=== PATIENT | female | born 1970 | race Hispanic/Latino ===

== ENCOUNTER 2019-06-21 19:16 | Emergency (ER) | payer SELFPAY ==
[2019-06-21 20:49] LABS: Bilirubin Negative (Negative); Blood, Urine Negative (Negative); Clarity Clear (Clear); Glucose, Urine (Dipstick) Normal (Negative); Leukocyte 25 Leu/uL (Negative); Nitrite Negative (Negative); Protein, Urine (Dipstick) Negative (Neg-Trace); RBC/HPF 0-3 HPF (0-3); Squamous Epithelial 0-3 HPF (0-3); Urobilinogen Normal mg/dL (Less than 2); WBC/HPF 0-3 HPF (0-3)
[2019-06-21 20:50] LABS: #Basophils 0.1 thou/uL (0.0-0.2); #Eosinphils 0.5 thou/uL (0.0-0.7); #Lymphocytes 3.3 thou/uL (1.20-3.40); #Monocytes 0.6 thou/uL (0.11-0.59); #Neutrophils 5.1 thou/uL (1.40-6.50); %Eosinophils 4.9 % (0.0-10.0); %Lymphocytes 34.2 % (21.0-51.0); %Monocytes 6.6 % (0.0-10.0); %Neutrophils 53.3 % (42.0-75.0); Hemoglobin 12.3 g/dL (12.0-16.0); Mean Corpuscular HGB CONC 33.8 g/dL (32.0-36.0); Mean Corpuscular Hemoglobin 31.7 pg (27.0-31.0); Mean Corpuscular Volume 93.8 fL (78.0-98.0); Mean Platelet Volume 7.9 fL (7.4-10.4); Platelet Count 282 thou/uL (130-400); RBC Distribution Width 12.7 % (11.5-14.5); Red Blood Cell (RBC) Count 3.86 mill/uL (4.20-5.40); White Blood Cell (WBC) Count 9.6 thou/uL (4.8-10.8)
[2019-06-21 20:50] LABS: Bacteria/HPF Rare-Few HPF (None Seen)
--- NOTE | 2019-06-21 21:05 | RAD ---
Exam: Chest one view HISTORY: Chest pain. Cough. Fever. Comparison: 10/21/2013 FINDINGS: Cardiac silhouette: Normal Aorta: Unremarkable Pulmonary vessels: Normal Costophrenic angles: Clear LUNGS: No masses or consolidation. Pneumothorax: None Osseous abnormalities: None IMPRESSION: No acute cardiopulmonary process.
[2019-06-21 21:07] LABS: ALT (SGPT) 21 U/L (8-55); AST (SGOT) 18 U/L (5-34); Albumin 4.6 g/dL (3.5-5.0); Alkaline Phosphatase 91 U/L (40-110); Anion Gap 12 mmol/L (10-20); BUN (Urea Nitrogen) 12 mg/dL (7.0-18.7); Bilirubin, Total 0.5 mg/dL (0.2-1.2); CK (CPK) 160 U/L (29-168); Calc. Creatinine Clearance 0 mL/min (70-130); Calcium 9.3 mg/dL (7.8-10.44); Carbon Dioxide 25 mmol/L (22-29); Chloride 107 mmol/L (98-107); Estimated GFR-MDRD Greater than 90; Globulin 3.2 g/dL (2.4-3.5); Glucose 95 mg/dL (70-105); Potassium 3.8 mmol/L (3.5-5.1); Protein, Total 7.8 g/dL (6.0-8.3); Sodium 140 mmol/L (136-145)
== END 2019-06-22 00:40 | disposition home or self-care (01) ==
LOC: ERS 19:16
DX: I10 Essential (primary) hypertension (principal); R60.0 Localized edema; E03.9 Hypothyroidism, unspecified; Z79.899 Other long term (current) drug therapy
CPT/HCPCS: 36415; 71045; 80053; 81003; 81015; 82550; 83880; 84484; 85025; 93005

== ENCOUNTER 2019-10-20 07:40 | Outpatient (CLI) | payer OTHER ==
--- NOTE | 2019-10-20 08:30 | ULT ---
ULTRASOUND ABDOMEN COMPLETE: DATE: 10/20/2019 HISTORY: 49-year-old female with abdominal pain FINDINGS: Liver:Normal size and echogenicity Gallbladder:Surgically absent Common duct:3 mm Spleen:No splenomegaly Pancreas:Tail obscured by shadowing from bowel gas. No sonographic abnormality of pancreatic body. Kidneys:No hydronephrosis Abdominal aorta:No aneurysm Inferior vena cava:Patent where visualized IMPRESSION: 1. Status post cholecystectomy. 2. Otherwise negative.
== END 2019-10-20 07:41 | disposition home or self-care (01) ==
LOC: BICULT 07:40
PROVIDERS: ATTEND Internal Medicine Gastroenterology
DX: R10.9 Unspecified abdominal pain (principal); Z90.49 Acquired absence of other specified parts of digestive tract
CPT/HCPCS: 93975